=== PATIENT | female | born 1995 | race Two or more races ===

== ENCOUNTER 2016-03-11 14:00 | Emergency (ER) | payer MEDICAID ==
[2016-03-11 14:42] VITALS: BP 112/77
--- NOTE | 2016-03-11 14:44 | ER Document Report ---
ED Medical Screen (RME) - General Stated Complaint: VAGINAL CHECK UP,SHOULDER PAIN Notes: shoulder sharp pain on the anterior aspect of her left shoulder no injury, accident patient was treated for chlamydia back in 01/29 she took her medication as prescribed denies any symptoms currently. no discharge, pelvic pain TRAVEL OUTSIDE OF THE [place] IN LAST 30 DAYS: No - Related Data Allergies/Adverse Reactions: No Known Allergies Allergy (Verified 03/11/16 14:42) Past Medical History - Immunizations Immunizations up to date: Yes Physical Exam - Vital signs Vitals: Temp Pulse Resp BP Pulse Ox 98.5 F 98 19 112/77 100 03/11/16 14:41 03/11/16 14:41 03/11/16 14:41 03/11/16 14:41 03/11/16 14:41 Course - Vital Signs Vital signs: Temp Pulse Resp BP Pulse Ox 98.5 F 98 19 112/77 100 03/11/16 14:41 03/11/16 14:41 03/11/16 14:41 03/11/16 14:41 03/11/16 14:41
--- NOTE | 2016-03-11 15:51 | ER Document Report ---
ED Extremity Problem, Upper - General Chief Complaint: Shoulder Pain Stated Complaint: VAGINAL CHECK UP,SHOULDER PAIN Notes: Patient says that she's been experiencing pain in the anterior aspect of her left shoulder intermittently for the past week. She says it is a sharp pain and comes and goes. It seems to be associated with when she is stressed or angry. Recalls no injury or unusual activity with the arm. Has never had this before. No symptoms with the arm. No fevers. No chest pains and no shortness of breath. Additionally, patient was treated here about 6 weeks ago for chlamydia and wishes to be checked to see if she is now clean. She has no symptoms such as discharge, pain, etc. LMP February 16. On no control. TRAVEL OUTSIDE OF THE [place] IN LAST 30 DAYS: No - Related Data Allergies/Adverse Reactions: No Known Allergies Allergy (Verified 03/11/16 14:42) Past Medical History - Social History Smoking Status: Never Smoker Cigarette use (# per day): No Chew tobacco use (# tins/day): No Frequency of alcohol use: Occasional Drug Abuse: Marijuana Family History: Reviewed & Not Pertinent Patient has suicidal ideation: No Patient has homicidal ideation: No Pulmonary Medical History: Denies: Hx Asthma - Immunizations Immunizations up to date: Yes Review of Systems - Review of Systems Constitutional: denies: Fever Cardiovascular: denies: Chest pain Respiratory: denies: Cough, Hurts to breathe, Short of breath, Wheezing Gastrointestinal: denies: Abdominal pain, Diarrhea, Vomiting Genitourinary: No symptoms reported Female Genitourinary: No symptoms reported. denies: - LMP February 16 , Heavy/abnormal periods, Irregular period, Vaginal discharge, Vaginal bleeding , Vaginal odor Musculoskeletal: See HPI Neurological/Psychological: No symptoms reported Physical Exam - Vital signs Vitals: Temp Pulse Resp BP Pulse Ox 98.5 F 98 19 112/77 100 03/11/16 14:41 03/11/16 14:41 03/11/16 14:41 03/11/16 14:41 03/11/16 14:41 - Notes Notes: PHYSICAL EXAMINATION: GENERAL: Well-appearing, in no acute distress. HEAD: Atraumatic, normocephalic. NECK: Normal range of motion, supple. LUNGS: Breath sounds clear and equal bilaterally. HEART: Regular rate and rhythm without murmurs. ABDOMEN: Soft, nontender. No guarding or rebound. No pelvic symptoms and exam deferred. Patient just wants the test done to see if she still positive for chlamydia. EXTREMITIES: Normal range of motion without pain. Left shoulder can be put through all 6 movements without any significant pain, popping or crackling, etc. No swelling of the left shoulder or left upper extremity. Nothing to suggest blood clots. Full range of motion of the shoulder as well as the elbow and hand and wrist of the left upper extremity. NEUROLOGICAL: Normal speech, normal gait. Normal sensory, motor, and reflex exams. Awake, alert, and oriented x3. Cranial nerves normal. PSYCH: Normal mood, normal affect. SKIN: Warm, dry, no rashes. Course - Re-evaluation Re-evalutation: 03/11/16 16:11 Patient is going to call me later this evening for the results of the chlamydia test. If she is unable to call this evening, she is going to call me either of the next 2 days when I'm also scheduled to work. - Vital Signs Vital signs: Temp Pulse Resp BP Pulse Ox 98.5 F 98 19 112/77 100 03/11/16 14:41 03/11/16 14:41 03/11/16 14:41 03/11/16 14:41 03/11/16 14:41 Discharge - Discharge Clinical Impression: Left anterior shoulder pain, Chlamydia check Condition: Stable Disposition: HOME, SELF-CARE Additional Instructions: Arm and Shouler Pain, Nonspecific We did not find an obvious cause for your arm pain. There's no sign of blood clot, infection, heart attack, stroke, or other serious disease. Most of the time, this type of pain goes away. If it does, no further evaluation is necessary. If pain continues or keeps coming back, we can do further testing. Possible causes of vague arm pain include muscle or joint inflammation, disc disease in the neck, pressure on the nerves and artery in the chest or armpit ("thoracic outlet syndrome"), or heart disease. Rest the arm. Pain can be eased with an antiinflammatory pain medicine such as ibuprofen. If the pain involves a small area, a heating pad might help. Call the doctor or return if the arm becomes swollen, weak, discolored, or increasingly painful, or if you develop any other significant change in your health. You have been previously evaluated in January,, and diagnosed with a chlamydia infection. You were treated appropriately with an antibiotic. Currently you are not having any vaginal or pelvic symptoms and just wished to have a recheck of the test for chlamydia. Chlamydia Chlamydia is a germ that grows inside the cells of the mucous membranes. It often infects the eyes, urethra, and fallopian tubes. It can cause chronic pain and scar tissue if untreated. Antibiotics are used to treat chlamydia. It's important to take all the medicine even if there are no symptoms. Use condoms to prevent spread of the infection. Because this infection can spread by sexual contact, it's important that your sexual partner be checked before resuming sexual relations. A positive test for chlamydia has to be reported to the health department. Call the doctor or return at once if you develop increasing fever, rash, severe pelvic pain, vaginal bleeding (other than your period), or problems with your bladder or bowels. A test will be performed on the urine specimen you provided. You can call me for the results in 3 hours or you can call me anytime tomorrow (Friday) or the next day (Friday). I have provided you with a card with my contact information. FOLLOW-UP CARE: If you have been referred to a physician for follow-up care, call the physician s office for an appointment as you were instructed or within the next two days. If you experience worsening or a significant change in your symptoms, notify the physician immediately or return to the Emergency Department at any time for re-evaluation.
[2016-03-11 17:35] LABS: CHLAM PCR NOT DETECTED (NOT DETECT)
== END 2016-03-11 16:06 | disposition home or self-care (01) ==
LOC: ER 14:00
DX: M25.512 Pain in left shoulder (principal); Z09 Encounter for follow-up examination after completed treatment for conditions other than malignant neoplasm; Z86.19 Personal history of other infectious and parasitic diseases
CPT/HCPCS: 81025; 87491; 87591; 99283

== ENCOUNTER 2017-04-02 13:29 | Emergency (ER) | payer SELFPAY ==
--- NOTE | 2017-04-02 15:02 | ER Document Report ---
ED Medical Screen (RME) - General Chief Complaint: Vaginal Discharge Stated Complaint: VAGINAL PROBLEMS Time Seen by Provider: 04/02/17 15:01 Notes: dysuria, worried about std TRAVEL OUTSIDE OF THE [place] IN LAST 30 DAYS: No - Related Data Allergies/Adverse Reactions: No Known Allergies Allergy (Verified 04/02/17 13:33) Past Medical History - Social History Chew tobacco use (# tins/day): No Frequency of alcohol use: None Drug Abuse: None Pulmonary Medical History: Denies: Hx Asthma Renal/ Medical History: Denies: Hx Peritoneal Dialysis - Immunizations Immunizations up to date: Yes Physical Exam - Vital signs Vitals: Temp Pulse Resp BP Pulse Ox 99.2 F 81 13 114/69 100 04/02/17 13:35 04/02/17 13:35 04/02/17 13:35 04/02/17 13:35 04/02/17 13:35 Course - Vital Signs Vital signs: Temp Pulse Resp BP Pulse Ox 99.2 F 81 13 114/69 100 04/02/17 13:35 04/02/17 13:35 04/02/17 13:35 04/02/17 13:35 04/02/17 13:35
[2017-04-02 15:51] LABS: APPEARANCE,URINE CLEAR; BILIRUBIN,URINE NEGATIVE (NEGATIVE); COLOR,URINE YELLOW; GLUCOSE, URINE NEGATIVE (NEGATIVE); KETONES,URINE NEGATIVE (NEGATIVE); LEUKOCYTE ESTERASE,URINE TRACE (NEGATIVE); NITRITE,URINE NEGATIVE (NEGATIVE); PROTEIN,URINE NEGATIVE (NEGATIVE); URINE SPECIFIC GRAVITY 1.018; UROBILINOGEN,URINE NEGATIVE mg/dL (<2.0)
--- NOTE | 2017-04-02 15:51 | ER Document Report ---
ED General - General Chief Complaint: Vaginal Discharge Stated Complaint: VAGINAL PROBLEMS Time Seen by Provider: 04/02/17 15:01 TRAVEL OUTSIDE OF THE [place] IN LAST 30 DAYS: No - HPI Patient complains to provider of: vaginal pain discharge Onset: Yesterday Onset/Duration: Gradual Quality of pain: Burning, Sharp Severity: Moderate Associated symptoms: None Exacerbated by: Other - urination Relieved by: Denies Notes: Young girl presents with pain with urination and vaginal discharge. Patient is sexually active with male partner, monogamous. No history of STDs. Does not use condoms. Denies any other symptoms. - Related Data Allergies/Adverse Reactions: No Known Allergies Allergy (Verified 04/02/17 15:07) Past Medical History - Social History Smoking Status: Current Every Day Smoker Chew tobacco use (# tins/day): No Frequency of alcohol use: None Drug Abuse: None Family History: Reviewed & Not Pertinent Patient has suicidal ideation: No Patient has homicidal ideation: No Pulmonary Medical History: Denies: Hx Asthma Renal/ Medical History: Denies: Hx Peritoneal Dialysis - Immunizations Immunizations up to date: Yes Review of Systems - Review of Systems Constitutional: No symptoms reported EENT: No symptoms reported Cardiovascular: No symptoms reported Respiratory: No symptoms reported Gastrointestinal: No symptoms reported Genitourinary: Dysuria, Discharge Female Genitourinary: No symptoms reported Musculoskeletal: No symptoms reported Skin: No symptoms reported Hematologic/Lymphatic: No symptoms reported Neurological/Psychological: No symptoms reported Physical Exam - Vital signs Vitals: Temp Pulse Resp BP Pulse Ox 99.2 F 81 13 114/69 100 04/02/17 13:35 04/02/17 13:35 04/02/17 13:35 04/02/17 13:35 04/02/17 13:35 Interpretation: Normal - General General appearance: Appears well, Alert - HEENT Head: Normocephalic, Atraumatic Eyes: Normal Pupils: PERRL - Respiratory Respiratory status: No respiratory distress Chest status: Nontender Breath sounds: Normal Chest palpation: Normal - Cardiovascular Rhythm: Regular Heart sounds: Normal auscultation Murmur: No - Abdominal Inspection: Normal Distension: No distension Bowel sounds: Normal Tenderness: Nontender Organomegaly: No organomegaly - Genitourinary Speculum exam: Normal, Cervix closed Bimanuel exam: Normal - Back Back: Normal, Nontender - Extremities General upper extremity: Normal inspection, Nontender, Normal color, Normal ROM , Normal temperature General lower extremity: Normal inspection, Nontender, Normal color, Normal ROM , Normal temperature, Normal weight bearing. No: Breonna's sign - Neurological Neuro grossly intact: Yes Cognition: Normal Orientation: AAOx4 [place] Coma Scale Eye Opening: Spontaneous [place] Coma Scale Verbal: Oriented Kp Coma Scale Motor: Obeys Commands Kp Coma Scale Total: 15 Speech: Normal Motor strength normal: LUE, RUE, LLE, RLE Sensory: Normal - Psychological Associated symptoms: Normal affect, Normal mood - Skin Skin Temperature: Warm Skin Moisture: Dry Skin Color: Normal Course - Re-evaluation Re-evalutation: 04/02/17 16:00 Well-appearing young girl presents with concerns of urinary tract infection or STD. 04/02/17 17:21 Urine shows no signs of infection, wet mount shows no bacterial vaginosis or trichomonas. At this time gonorrhea and Chlamydia are pending. Patient does not want to wait for the results. Patient had no cervical motion tenderness. We will be discharged home follow-up with family doctor. - Vital Signs Vital signs: Temp Pulse Resp BP Pulse Ox 97.8 F 86 16 123/76 99 04/02/17 17:50 04/02/17 17:50 04/02/17 17:50 04/02/17 17:50 04/02/17 17:50 - Laboratory Laboratory results interpreted by me: 04/02/17 15:20 Ur Leukocyte Esterase TRACE H Discharge - Discharge Clinical Impression: STD (female) Condition: Stable Disposition: HOME, SELF-CARE Instructions: Chlamydia ([facility]), Gonorrhea ([facility]) Prescriptions: Doxycycline Hyclate 100 mg PO BID #14 capsule
[2017-04-02 16:56] LABS: BACTERIA (WET MOUNT) 3+ BACTERIA SEEN; T.VAGINALIS (WET MOUNT) NO TRICHOMONAS SEEN; WBCS (WET MOUNT) 1+ WBCS SEEN; YEAST (WET MOUNT) NO YEAST SEEN
[2017-04-02] MEDS ORDERED: LIDOCAINE 1% INJ-PF (10 MG/ML) 30 ML SDV INJ ONE (17:21)
[2017-04-02] MEDS ORDERED: CEFTRIAXONE INJ 1000 MG VIAL IM ONE (17:21)
[2017-04-02] MEDS ORDERED: DOXYCYCLINE HYCLATE 100 MG TABLET PO ONE (17:22)
[2017-04-02 18:04] VITALS: BP 123/76
[2017-04-02 18:12] LABS: CHLAM PCR NOT DETECTED (NOT DETECT); GON PCR NOT DETECTED (NOT DETECT)
== END 2017-04-02 18:14 | disposition home or self-care (01) ==
LOC: ER 13:29
DX: N89.8 Other specified noninflammatory disorders of vagina (principal); A64 Unspecified sexually transmitted disease
CPT/HCPCS: 99284; 96372; 87210; 81025; 81001; 87491; 87591; J3490; J0696

== ENCOUNTER 2017-06-02 13:07 | Emergency (ER) | payer SELFPAY ==
[2017-06-02 13:20] VITALS: BP 117/69
--- NOTE | 2017-06-02 14:46 | ER Document Report ---
HPI - HPI Patient complains to provider of: STD exposure Pain Level: 5 Context: In March and treated for chlamydia and gonorrhea. She states that she wanted to come in today and check to make sure it was gone. States she is sexually active with one partner and she does not use protection. She states that he was evaluated and tested negative. She states that she has not been with anybody else. She denies any vaginal discharge, pelvic pain. She admits to left lower quadrant pain that improves with rest, bowel movements. Denies any nausea or vomiting. Fevers or chills, pyuria, hematuria - REPRODUCTIVE Reproductive: DENIES: : Past Medical History - Social History Smoking Status: Smoker,Current Status Unk Family History: Reviewed & Not Pertinent Pulmonary Medical History: Denies: Hx Asthma Renal/ Medical History: Denies: Hx Peritoneal Dialysis - Immunizations Immunizations up to date: Yes Vertical Provider Document - CONSTITUTIONAL Agree With Documented VS: Yes Notes: PHYSICAL EXAM GENERAL: Alert, interacts well. HEAD: Normocephalic, atraumatic. ABDOMEN: Soft, nondistended, nontender. No guarding, rebound, or rigidity.. Bowel sounds present in all 4 quadrants. FEMALE : Normal external exam. No evidence of lesions, lacerations, bruising or vesicles. Speculum exam normal cervix closed. No evidence of vaginal discharge with odor. No evidence of lesions. No vaginal bleeding. Bimanual exam normal no cervical motion tenderness. No adnexal mass or adnexal tenderness. EXTREMITIES: Moves all 4 extremities spontaneously. No edema, radial and dorsalis pedis pulses 2/4 bilaterally. No cyanosis. NEUROLOGICAL: Alert and oriented x4. Normal speech. PSYCH: Normal affect, normal mood. SKIN: Warm, dry, normal turgor. No rashes or lesions noted. - INFECTION CONTROL TRAVEL OUTSIDE OF THE [place] IN LAST 30 DAYS: No Course - Re-evaluation Re-evalutation: 06/02/17 15:45 Patient is a 21-year-old female is hemodynamically stable, no acute distress and afebrile. Presentation of generalized, intermittent abdominal pain. Abdominal exam is benign without any focal tenderness. Vitals are normal at the time of arrival. Laboratories are unremarkable without evidence of cystitis , . Patient is overall very well in appearance. Based on clinical history and examination I do not suspect an acute appendicitis, tubo-ovarian abscess, related pathology, pelvic inflammatory disease, mesenteric ischemia, or pyelonephritis. Pelvic exam without cervical motion tenderness or focal adnexal tenderness. Patient declining treatment for quitting gonorrhea at this time. Will discharge home with return precautions and followup recommendations. - Vital Signs Vital signs: Temp Pulse Resp BP Pulse Ox 98.5 F 85 18 117/69 100 06/02/17 13:19 06/02/17 13:19 06/02/17 13:19 06/02/17 13:19 06/02/17 13:19 Discharge - Discharge Clinical Impression: Concern about STD in female without diagnosis Condition: Good Disposition: HOME, SELF-CARE Additional Instructions: There is no evidence of sexually transmitted disease on evaluation today. We will call the phone number provided if your Chlamydia or gonorrhea test is positive. Please follow-up with the physician on your paperwork ABDOMINAL PAIN: There are many causes of abdominal pain. Pain can mean a serious problem requiring surgery (such as appendicitis). It can also be an innocent problem that goes away on its own (such as a viral infection). Often, time must pass to determine the cause of pain. The physician does not feel that hospitalization is necessary, at present. Things may change within the next 24 hours. Call the doctor or come back for re- examination if any problems occur, such as: (1) Pain that becomes more severe, steady, or becomes concentrated in one specific area. Also, pain that is more severe with movement or coughing. (2) Vomiting that persists or becomes more frequent. (3) Blood in the vomitus, urine, or bowel movements. Blood in the stool may have a tarry or black appearance. (4) Shaking chills or fever greater than 100 degrees F. (5) The abdomen becomes more distended or swollen. (6) Bowel movements cease. (7) Failure to improve as expected. NORMAL EXAM AND WORKUP: At this time, your examination and workup show no significant abnormality. No significant abnormal physical findings are noted. All laboratory, EKG, and imaging (x-ray, CT scans, ultrasound) studies that were ordered show no significant abnormality. Although your examination and all studies that were ordered showed no significant abnormal finding, there are no examinations and no studies that are 100% accurate. There is always the possibility that some abnormality could exist and not be detected with physical examination or within the limits and capabilities of laboratory and other studies. You should return or follow up as you were instructed on your visit today for further evaluation if your symptoms do not resolve. Referrals: [facility] [Provider Group] - Follow up in 3-5 days
[2017-06-02 15:00] LABS: APPEARANCE,URINE CLEAR; BILIRUBIN,URINE NEGATIVE (NEGATIVE); COLOR,URINE YELLOW; GLUCOSE, URINE NEGATIVE (NEGATIVE); KETONES,URINE 20 mg/dL (NEGATIVE); LEUKOCYTE ESTERASE,URINE NEGATIVE (NEGATIVE); NITRITE,URINE NEGATIVE (NEGATIVE); PROTEIN,URINE NEGATIVE (NEGATIVE); URINE SPECIFIC GRAVITY 1.024; UROBILINOGEN,URINE NEGATIVE mg/dL (<2.0)
[2017-06-02 15:19] LABS: RBCS (WET MOUNT) NO RBCS SEEN; T.VAGINALIS (WET MOUNT) NO TRICHOMONAS SEEN; WBCS (WET MOUNT) FEW WBCS SEEN; YEAST (WET MOUNT) NO YEAST SEEN
[2017-06-02 16:19] LABS: CHLAM PCR NOT DETECTED (NOT DETECT); GON PCR NOT DETECTED (NOT DETECT)
== END 2017-06-02 16:11 | disposition home or self-care (01) ==
LOC: ER 13:07
DX: Z20.2 Contact with and (suspected) exposure to infections with a predominantly sexual mode of transmission (principal); R10.84 Generalized abdominal pain
CPT/HCPCS: 81001; 81025; 87086; 87210; 87491; 87591; 99283

== ENCOUNTER 2018-06-06 14:16 | Emergency (ER) | payer OTHER ==
[2018-06-06 14:31] VITALS: BP 118/66
[2018-06-06] MEDS ORDERED: ACETAMINOPHEN 325 MG TABLET PO ONE (15:19)
[2018-06-06] MEDS ORDERED: IBUPROFEN 600 MG TABLET PO ONE (15:19)
--- NOTE | 2018-06-06 15:19 | ER Document Report ---
HPI - HPI Time Seen by Provider: 06/06/18 14:50 Pain Level: 3 Context: She is a 22-year-old female who presents to the emergency department with a chief complaint of a lump in her throat. She states that she noticed it yesterday. He does admit to having a sore throat. She denies any past medical history. Denies any fever, but does admit to body aches. She states that she has had some difficulty swallowing, but is still able to tolerate oral fluids. She has no past medical history. Does not take any medications. Does admit to marijuana use. - CONSTITUTIONAL Constitutional: DENIES: Fever, Chills Notes: Body aches - EENT EENT: REPORTS: Sore Throat. DENIES: Nasal Drainage-Clear, Nasal Drainage- Purulent, Congestion, Eye problems - NEURO Neurology: DENIES: Headache - CARDIOVASCULAR Cardiovascular: DENIES: Chest pain - RESPIRATORY Respiratory: DENIES: Trouble Breathing, Coughing - GASTROINTESTINAL Gastrointestinal: DENIES: Abdominal Pain - REPRODUCTIVE Reproductive: DENIES: : - DERM Skin Color: Normal Skin Problems: None Past Medical History - General Information source: Patient - Social History Smoking Status: Never Smoker Frequency of alcohol use: None Drug Abuse: Marijuana Family History: Reviewed & Not Pertinent Pulmonary Medical History: Denies: Hx Asthma Renal/ Medical History: Denies: Hx Peritoneal Dialysis - Immunizations Immunizations up to date: Yes Vertical Provider Document - CONSTITUTIONAL Agree With Documented VS: Yes Exam Limitations: No Limitations General Appearance: No Apparent Distress - INFECTION CONTROL TRAVEL OUTSIDE OF THE [place] IN LAST 30 DAYS: No - HEENT HEENT: Atraumatic, Normocephalic, PERRLA, Pharyngeal Tenderness, Pharyngeal Erythema. negative: Pharyngeal Exudate, Tympanic Membrane Red, Tympanic Membrane Bulging Notes: Submandibular lymph node mildly enlarged. - NECK Neck: Normal Inspection - RESPIRATORY Respiratory: Breath Sounds Normal, No Respiratory Distress - CARDIOVASCULAR Cardiovascular: Regular Rate, Regular Rhythm Pulses: Normal: Radial - GI/ABDOMEN Gastrointestinal: Abdomen Soft - MUSCULOSKELETAL/EXTREMETIES Musculoskeletal/Extremeties: FROM Course - Re-evaluation Re-evalutation: 06/06/18 15:21 The patient's lump that she feels feels like a submandibular lymph node. I will send a strep test to rule out strep pharyngitis. She will be given ibuprofen and Tylenol. 06/06/18 16:19 Patient's rapid strep is negative. She will be sent home with supportive care with follow-up with her primary care provider. Throat swab was sent for cul ture. Patient will continue ibuprofen and Tylenol use for her symptoms. Verbal discharge instructions were given to the patient. They verbalized understanding. They are stable for discharge. - Vital Signs Vital signs: Temp Pulse Resp BP Pulse Ox 97.8 F 77 18 118/66 97 06/06/18 14:29 06/06/18 14:29 06/06/18 14:29 06/06/18 14:29 06/06/18 14:29 Discharge - Discharge Clinical Impression: Sore throat, Lymph node enlargement Condition: Stable Disposition: HOME, SELF-CARE Instructions: Sore Throat ([facility]) Additional Instructions: You were seen today in the emergency department for a swollen lymph node and a sore throat. Your rapid strep test was negative. If it is positive, you will be called in be given antibiotics. Please follow-up with your primary care provider in regards to this visit. You can take ibuprofen 600 mg and acetaminophen 1000 mg every 6 hours as needed for your pain. If you have worsening symptoms, difficulty breathing, or have any symptoms that are worrisome to you, please return to the emergency department.
== END 2018-06-06 16:27 | disposition home or self-care (01) ==
LOC: ER 14:16
DX: J02.9 Acute pharyngitis, unspecified (principal); R59.0 Localized enlarged lymph nodes; R13.10 Dysphagia, unspecified
CPT/HCPCS: 87070; 87880; 99283